=== PATIENT | female | born 1995 | race Caucasian/White ===

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

== ENCOUNTER 2018-01-01 15:22 | Emergency (ER) | payer OTHER ==
[2018-01-01 15:27] VITALS: TEMP 97.9; BMI 26.6
[2018-01-01] MEDS ORDERED: SODIUM CHLORIDE 1,000 ML IV STA (17:17)
[2018-01-01] MEDS ORDERED: METOCLOPRAMIDE HCL INJECTION 10 MG/2 ML VIAL IVPB ONE (17:17)
[2018-01-01] MEDS ORDERED: KETOROLAC TROMETHAMINE 30 MG/1 ML VIAL IVPUSH ONE (17:18)
[2018-01-01] MEDS ORDERED: METOCLOPRAMIDE HCL INJECTION 10 MG/2 ML VIAL ONE (17:35)
[2018-01-01] MEDS ORDERED: KETOROLAC TROMETHAMINE 30 MG/1 ML VIAL ONE (17:35)
--- NOTE | 2018-01-01 17:35 | PDOC ---
History of Present Illness - General Chief Complaint: Migraine Headache Stated Complaint: Migrane Headache Time Seen by Provider: 01/01/18 16:38 History Source: Patient - History of Present Illness Timing/Duration: reports: other Associated Symptoms: reports: seizures. denies: fever/chills, nausea/vomiting Past History - Past Medical History Allergies/Adverse Reactions: Allergies Allergy/AdvReac Type Severity Reaction Status Date / Time shellfish derived Allergy Intermediate Verified 01/01/18 15:27 Penicillins Allergy Unknown Verified 01/01/18 15:27 montelukast sodium AdvReac Severe seizure Verified 01/01/18 15:27 [From [facility]] Home Medications: Ambulatory Orders Topiramate [Topamax -] 200 mg PO BID 11/04/16 Polyethylene Glycol 3350 [Miralax 119 gm Btl -] 17 gm PO TID #30 bottle Topiramate [Topamax -] 200 mg PO BID tablet 12/17/16 COPD: No Seizures: Yes Other medical history: Migranes - Reproductive History Cervical CA: No Dysfunctional Uterine Bleeding: No Ectopic : No Endometrial CA: No Polycystic Ovaries: No Tubal Ligation: No - Immunization History Immunization Up to Date: Yes - Suicide/Smoking/Psychosocial Hx Smoking Status: No Smoking History: Never smoked Have you smoked in the past 12 months: No Number of Cigarettes Smoked Daily: 0 Information on smoking cessation initiated: No Hx Alcohol Use: No Drug/Substance Use Hx: No Substance Use Type: None Review of Systems - Review of Systems Constitutional: No: Chills, Fever ABD/GI: No: Nausea, Vomiting Neurological: Yes: Headache, Dizziness. No: Numbness, Tingling, Weakness *Physical Exam - Vital Signs Last Vital Signs Temp Pulse Resp BP Pulse Ox 97.9 F 72 17 142/79 100 01/01/18 15:24 01/01/18 15:24 01/01/18 15:24 01/01/18 15:24 01/01/18 15:24 - Physical Exam General Appearance: Yes: Appropriately Dressed. 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 Patient states she had a seizure 5 days ago while on her bed and since then has been having occipital headache that has been constant and not adequately relieved with Motrin. Possibly dizziness and visual changes. No photophobia, nausea or vomiting. States she has had similar headaches, but not this constant. No neck pain, URI symptoms, fever or chills. States her seizures have been well controlled until seizure 5 days ago. Does not get usually get headaches post seizure. Has appointment with her neurologist in 2 days per mother See exam DUONG s/p seizure 5 days ago No head injury during seizure, occurred on bed Taking motrin w/ minimal relief Neuro intact No s/o infxn No indication for neuroimaging as d/w Dr Pina -pain control/reassess 01/01/18 18:56 On reassessment, patient reports that headache has resolved. Feels well enough to go home and follow-up with her neurologist in 2 days 01/01/18 18:58 *DC/Admit/Observation/Transfer Diagnosis at time of Disposition: Headache Qualifiers: Headache type: unspecified Headache chronicity pattern: acute headache Intractability: not intractable Qualified Code(s): R51 - Headache - Discharge Dispostion Disposition: HOME Condition at time of disposition: Improved - Referrals - Patient Instructions Printed Discharge Instructions: DI for Headache Additional Instructions: You were given IV Reglan and Toradol in ED, which seemed to improve your symptoms. You can take up to 800mg of Motrin every 6 hours as needed for pain. Be sure to take medication with food. If symptoms worsen, return to the ER. Otherwise follow-up with her neurologist as scheduled in 2 days - Post Discharge Activity
[2018-01-01 19:13] VITALS: BP 118/75; PULSE 76
== END 2018-01-01 19:13 | disposition home or self-care (01) ==
LOC: JER 15:22
PROC: 3E0333Z Introduction of Anti-inflammatory into Peripheral Vein, Percutaneous Approach (ICD-10-PCS; principal; 2018-01-01)
PROC: 3E033GC Introduction of Other Therapeutic Substance into Peripheral Vein, Percutaneous Approach (ICD-10-PCS; 2018-01-01)
DX: G43.909 Migraine, unspecified, not intractable, without status migrainosus (principal); G40.909 Epilepsy, unspecified, not intractable, without status epilepticus
CPT/HCPCS: 84703; 99281-25; J7030

== ENCOUNTER 2018-07-28 12:18 | Emergency (ER) | payer OTHER ==
[2018-07-28 12:28] VITALS: BP 116/61; PULSE 76; TEMP 98.4; BMI 34.0
[2018-07-28 12:57] LABS: HCG,QUALITATIVE URINE Negative
--- NOTE | 2018-07-28 12:57 | PDOC ---
History of Present Illness - General Chief Complaint: Pain Stated Complaint: BACK PAIN Time Seen by Provider: 07/28/18 12:26 History Source: Patient Exam Limitations: No Limitations - History of Present Illness Initial Comments: 07/28/18 12:43 22 yo F with h/o seizure disorder, pcos, here today c/o lower back pain left side and left lower quadrant pain. started 3 - 4 days ago, today was worese. too motrin earlier min relief. denies urinary complaints. no f/c no worse wtih movement. denies injury. no known h/o ovarian cyst. LMP 1 week ago. no other assoc n/v/f/c. 07/28/18 15:15 Past History - Past Medical History Allergies/Adverse Reactions: Allergies Allergy/AdvReac Type Severity Reaction Status Date / Time shellfish derived Allergy Severe Difficulty Verified 07/28/18 12:22 Breathing Penicillins Allergy Unknown Rash Verified 07/28/18 12:21 montelukast sodium AdvReac Severe seizure Verified 01/01/18 15:27 [From [facility]] Home Medications: Ambulatory Orders Topiramate [Topamax -] 200 mg PO BID 11/04/16 Polyethylene Glycol 3350 [Miralax 119 gm Btl -] 17 gm PO TID #30 bottle Topiramate [Topamax -] 200 mg PO BID tablet 12/17/16 COPD: No Seizures: Yes - Reproductive History Cervical CA: No Dysfunctional Uterine Bleeding: No Ectopic : No Endometrial CA: No Polycystic Ovaries: No Tubal Ligation: No - Immunization History Immunization Up to Date: Yes - Suicide/Smoking/Psychosocial Hx Smoking Status: No Smoking History: Never smoked Have you smoked in the past 12 months: No Number of Cigarettes Smoked Daily: 0 Information on smoking cessation initiated: No Hx Alcohol Use: No Drug/Substance Use Hx: No Substance Use Type: None Review of Systems - Review of Systems Constitutional: No: Chills, Diaphoresis HEENTM: No: Eye Pain Respiratory: No: Cough, Orthopnea : No: Burning, Dysuria, Discharge Musculoskeletal: Yes: Back Pain Integumentary: No: Bruising, Change in Color All Other Systems: Reviewed and Negative *Physical Exam - Vital Signs Last Vital Signs Temp Pulse Resp BP Pulse Ox 98.4 F 76 16 116/61 99 07/28/18 12:20 07/28/18 12:20 07/28/18 12:20 07/28/18 12:20 07/28/18 12:20 - Physical Exam Comments: 07/28/18 12:57 awake alert nad. lungs clear bilaterally heart no mrg abd soft mild llq ttp. mild suprapubic ttp. no rebound no guarding. no mildline spinal tendernes.s. no cva tenderness. nuero alert oriented x 3 ED Treatment Course - RADIOLOGY Radiology Studies Ordered: Category Date Time Status KIDNEY / RENAL US [US] Stat Ultrasound 07/28/18 12:36 Ordered TRANSVAGINAL ULTRASOUND US [US] Stat Ultrasound 07/28/18 12:34 Ordered Medical Decision Making - Medical Decision Making 07/28/18 12:58 differential ovarian cyst, torsion. uti pyelo, renal colic less likely based on pain history and description. plan tvus ovaries and renal us, ua ucg. 07/28/18 15:15 pt us tvus and renal unrmarkable. review of pt chart has had two prior ct a/p. due to young age, concerns for radiation exposure. will trial toradol, reassess. cheikh outpt followup. 07/28/18 15:38 on reexamination pt minimal tenderness. given toradol im . requesting dc papers. has outpt mri for fu renal lesion/ cyst. also fu with dr. sanabria. *DC/Admit/Observation/Transfer Diagnosis at time of Disposition: Abdominal pain - Discharge Dispostion Disposition: HOME Condition at time of disposition: Improved - Referrals - Patient Instructions Printed Discharge Instructions: Acute Abdominal Pain Additional Instructions: you should follow up with the MRI of your abdomen as scheduled. return for any fever, worsening symptoms or any concerns. follow up with your primary doctor dr. sanabria - Post Discharge Activity
[2018-07-28 13:10] LABS: PH,URINE 6.5 (4.5-8); URINE APPEARANCE Clear; URINE BILIRUBIN Negative (NEGATIVE); URINE COLOR Yellow; URINE GLUCOSE (UA) Negative (NEGATIVE); URINE KETONE Negative (NEGATIVE); URINE LEUK ESTERASE Negative (NEGATIVE); URINE NITRITE Negative (NEGATIVE); URINE PROTEIN 1+ (NEGATIVE); URINE UROBILINOGEN 0.2 (0.2-1.0)
[2018-07-28 13:29] LABS: URINE WBC 0-2 (0-5)
[2018-07-28 13:30] LABS: EPI CELLS 1+ /HPF; URINE BACTERIA FEW /hpf (NEGATIVE)
[2018-07-28] MEDS ORDERED: KETOROLAC TROMETHAMINE 30 MG/1 ML VIAL IM ONE (15:37)
[2018-07-28] MEDS ORDERED: KETOROLAC TROMETHAMINE 30 MG/1 ML VIAL ONE (16:15)
== END 2018-07-28 16:22 | disposition home or self-care (01) ==
LOC: FER 12:18
PROC: 3E0233Z Introduction of Anti-inflammatory into Muscle, Percutaneous Approach (ICD-10-PCS; principal; 2018-07-28)
DX: R10.9 Unspecified abdominal pain (principal)
CPT/HCPCS: 76775-TC; 76830-TC; 81003; 81015; 84703; 99282-25

== ENCOUNTER 2018-08-05 19:00 | Emergency (ER) | payer OTHER ==
--- NOTE | 2018-08-05 19:24 | PDOC ---
History of Present Illness - General History Source: Patient Exam Limitations: No Limitations - History of Present Illness Initial Comments: 08/05/18 19:35 A portion of this note was documented by scribe services under my direction. I have reviewed the details of the note, within reason, and agree with the documentation. The case summary and management plan written by me. Assessment and plan: This is a 22-year-old female with long history of seizure disorder who is had multiple CAT scans in the past. Patient has a seizure approximately every 1-2 years. Patient's has been med compliant. Patient said that she had a seizure this afternoon as per her boyfriend consisted of her typical seizure which is a grand mal seizure. Patient did fall back at the time she had the seizure and hit the posterior lateral occipital area. Patient said seizure occurred approximately 5 hours and since the seizure she has felt tired and had pain in the area where she hit her head. Patient does have a contusion to the area where she hit her head. Otherwise I did a complete neurological exam including funduscopic exam all of which were normal. Patient was not photophobic, she had no meningeal signs and complained of just feeling "out of it" and a mild headache. Patient did not want a CAT scan as she has had multiple CAT scans in the past and did not want to be subjected to additional radiation if at all possible. Patient has a reliable person with her that will stay with her tonight to make sure that there is no significant change in her neurological condition. Her significant other was given instructions as to what to look out for bring her back for. Patient was discharged home <Dann Kimball I - Last Filed: 08/05/18 19:35> - History of Present Illness Initial Comments: 08/05/18 19:59 HPI: The patient is a 22 year old female, with a significant past medical history of epilepsy (Grand Mal seizures and multiple head CT scans), who presents to the emergency department s/p seizure. As per patient, 5 hours prior to her arrival she had a witnessed Grand Mal seizure and fell backwards onto a concrete sidewalk similar to her baseline seizures (every 1-2 years). She did not seek medical at this time, went home, and took a nap. Upon waking up and eating, she began to have a headache where she hit her head. The patient endorses associated mild lethargy, nausea, disorientation, and right shoulder pain. She denies photophobia and phonophobia. She denies recent fevers, chills, or dizziness. She denies recent vomit, diarrhea or constipation. She denies recent dysuria, frequency, urgency or hematuria. She denies recent chest pain or shortness of breath. PAST MEDICAL HISTORY: no significant history PAST SURGICAL HISTORY: no significant history FAMILY HISTORY: no pertinent history SOCIAL HISTORY: Pt lives with family and is employed. MEDICATIONS: reviewed ALLERGIES: As per nursing notes ROS: +General: Lethargy. No fevers or chills, no weakness, no weight loss HEENT: No change in vision. No sore throat,. No ear pain CardioVascular: No chest pain or shortness of breath Respiratory:No cough, or wheezing. +Gastrointestinal: Nausea. no vomiting, diarrhea or constipation, No rectal bleeding Genitourinary: No dysuria, hematuria, or frequency +Musculoskeletal: Right shoulder pain. No joint or muscle swelling +Neurologic: Headache. Disorientation. Psychiatric: nor depression Skin: No rashes or easy bruising Endocrine: no increased thirst or abnormal weight change Allergic: no skin or latex allergy All other systems reviewed and normal Physical Exam: GENERAL: The patient is awake, alert, and fully oriented, in no acute distress. HEAD: Normal with no signs of trauma. EYES: Pupils equal, round and reactive to light, extraocular movements intact, sclera anicteric, conjunctiva clear. +EXTREMITIES: Right shoulder: Discomfort with ROM. No ecchymosis, swelling, or bony tenderness noted. Neurovascularly intact. NEURO: Mental status: The patient alert and is oriented x3. Cranial nerves: Cranial nerves II through XII are intact Fundoscopic exam normal Motor: The upper extremities are 5 over 5 in all muscle groups. The lower extremities are 5 over 5 in all muscle groups. Sensation: Sensation is intact to light touch throughout. Cerebellar: Strvul-[id number]-[id number] is normal in both upper extremities. Heel-knee- barnhart is normal in both lower extremities. Gait: Normal. Heel and toe walking are normal. Tandem gait is normal. PSYCH: Normal mood, normal affect. SKIN: Warm, Dry, normal turgor, no rashes or lesions noted. 08/05/18 20:07 <Daisy Dubois - Last Filed: 08/05/18 20:09> - General Chief Complaint: Seizure Stated Complaint: SEIZURE, FALL, HEAD INJURY Time Seen by Provider: 08/05/18 19:23 Past History - Past Medical History COPD: No Seizures: Yes - Reproductive History Cervical CA: No Dysfunctional Uterine Bleeding: No Ectopic : No Endometrial CA: No Polycystic Ovaries: No Tubal Ligation: No - Immunization History Immunization Up to Date: Yes - Suicide/Smoking/Psychosocial Hx Smoking Status: No Smoking History: Never smoked Have you smoked in the past 12 months: No Number of Cigarettes Smoked Daily: 0 Information on smoking cessation initiated: No Hx Alcohol Use: No Drug/Substance Use Hx: No Substance Use Type: None <Dann Kimball I - Last Filed: 08/05/18 19:35> <Daisy Dubois - Last Filed: 08/05/18 20:09> - Past Medical History Allergies/Adverse Reactions: Allergies Allergy/AdvReac Type Severity Reaction Status Date / Time shellfish derived Allergy Severe Difficulty Verified 08/05/18 19:03 Breathing Penicillins Allergy Unknown Rash Verified 08/05/18 19:03 Fish Containing Products Allergy Verified 08/05/18 19:03 fish derived Allergy Verified 08/05/18 19:03 Sulfa (Sulfonamide Allergy Verified 08/05/18 19:03 Antibiotics) montelukast sodium AdvReac Severe seizure Verified 08/05/18 19:03 [From [facility]] Home Medications: Ambulatory Orders Topiramate [Topamax] 500 mg PO DAILY 08/05/18 *Physical Exam - Vital Signs Last Vital Signs Temp Pulse Resp BP Pulse Ox 98.1 F 98 H 18 132/76 100 08/05/18 19:00 08/05/18 19:00 08/05/18 19:00 08/05/18 19:00 08/05/18 19:00 <Dann Kimball I - Last Filed: 08/05/18 19:35> - Vital Signs Last Vital Signs Temp Pulse Resp BP Pulse Ox 98.1 F 98 H 18 132/76 100 08/05/18 19:00 08/05/18 19:00 08/05/18 19:00 08/05/18 19:00 08/05/18 19:00 <Daisy Dubois - Last Filed: 08/05/18 20:09> *DC/Admit/Observation/Transfer - Discharge Dispostion Decision to Admit order: No <Dann Kimball I - Last Filed: 08/05/18 19:35> - Attestations Scribe Attestion: 08/05/18 20:00 Documentation prepared by Daisy Dubois, acting as medical device assembler for Dann Kimball MD. <Daisy Dubois - Last Filed: 08/05/18 20:09> Diagnosis at time of Disposition: Seizure Qualifiers: Convulsion type: unspecified Qualified Code(s): R56.9 - Unspecified convulsions Contusion of scalp Qualifiers: Encounter type: initial encounter Qualified Code(s): S00.03XA - Contusion of scalp, initial encounter Strain of right shoulder Qualifiers: Encounter type: initial encounter Qualified Code(s): S46.911A - Strain of unspecified muscle, fascia and tendon at shoulder and upper arm level, right arm , initial encounter - Discharge Dispostion Disposition: HOME Condition at time of disposition: Stable - Referrals Referrals: Curt Polanco [Primary Care Provider] - - Patient Instructions Printed Discharge Instructions: DI for Seizure Disorder -- Adult Additional Instructions: Make sure you continue to take your medications as prescribed including her seizure medication. For the next 24-48 hours take Tylenol for your headache after that you can start taking ibuprofen if needed also for your shoulder discomfort. Someone should check on you once tonight during the night. You should be arousable to their normal level of arousability for that time of the night. If you are vomiting, have a seizure, or you are unable to be aroused, someone should call 911 and have the you brought to the nearest emergency department. You can take Tylenol as needed for pain. Return to the emergency department immediately with ANY new, persistent or worsening symptoms. Continue any medications as previously prescribed by your physician. You should follow up with your primary doctor as soon as possible regarding today's emergency department visit. . Please make sure your doctor reviews the results of your emergency evaluation. Thank you for coming to the Emergency Department today for your care. It was a pleasure to see you today. Please note that your evaluation is INCOMPLETE until you follow-up with your doctor. - Post Discharge Activity
[2018-08-05 19:26] VITALS: BP 132/76; PULSE 98; TEMP 98.1; BMI 33.9
== END 2018-08-05 19:50 | disposition home or self-care (01) ==
LOC: FER 19:00
DX: G40.909 Epilepsy, unspecified, not intractable, without status epilepticus (principal); S00.03XA Contusion of scalp, initial encounter; S46.911A Strain of unspecified muscle, fascia and tendon at shoulder and upper arm level, right arm, initial encounter; X58.XXXA Exposure to other specified factors, initial encounter; Y93.89 Activity, other specified; Y92.89 Other specified places as the place of occurrence of the external cause
CPT/HCPCS: 99283-25

== ENCOUNTER 2020-11-06 06:52 | Day surgery (SDC) | payer OTHER ==
[2020-11-03 13:58] VITALS: BMI 33.9
[2020-11-06] MEDS ORDERED: EPINEPHrine 1:1,000 1 MG/1 ML - 30ML VIAL (INJECTION) ONE (07:18)
[2020-11-06] MEDS ORDERED: MIDAZOLAM HCL 2 MG/2 ML SINGLE DOSE VIAL ONE (09:12)
[2020-11-06] MEDS ORDERED: ROPIVACAINE HCL 0.5% 30ML VIAL ONE (09:13)
[2020-11-06] MEDS ORDERED: DEXAMETHASONE SOD PHOSPHATE 10 MG/1 ML VIAL ONE (09:20)
[2020-11-06] MEDS ORDERED: PROPOFOL 20 ML ONE ×16 (09:39→13:19)
[2020-11-06] MEDS ORDERED: ceFAZolin SODIUM 1 GM VIAL ONE (09:59)
[2020-11-06] MEDS ORDERED: ONDANSETRON 4 MG/2 ML VIAL ONE ×2 (10:06→14:01)
[2020-11-06] MEDS ORDERED: DEXAMETHASONE SOD PHOSPHATE 4 MG/1 ML VIAL ONE (10:06)
[2020-11-06] MEDS ORDERED: HYDROmorphone HCL/PF 1 MG/ML VIAL ONE (12:16)
[2020-11-06] MEDS ORDERED: KETOROLAC TROMETHAMINE 30 MG/1 ML VIAL ONE (14:01)
[2020-11-06] MEDS ORDERED: ONDANSETRON 4 MG/2 ML VIAL IVPUSH PRN (14:16)
[2020-11-06] MEDS ORDERED: oxyCODONE HCL 5 MG TABLET PO PRN (14:16)
[2020-11-06] MEDS ORDERED: LACTATED RINGERS SOLUTION 1,000 ML IV SCH (14:30)
[2020-11-06] MEDS ORDERED: oxyCODONE HCL 5 MG TABLET ONE (16:08)
[2020-11-06 17:09] VITALS: PULSE 81
[2020-11-06 17:10] VITALS: BP 110/64; TEMP 98.4
== END 2020-11-06 17:10 | disposition home or self-care (01) ==
LOC: FASU 06:52
PROVIDERS: ATTEND Orthopaedic Surgery Sports Medicine
PROC: 0RCJ4ZZ Extirpation of Matter from Right Shoulder Joint, Percutaneous Endoscopic Approach (ICD-10-PCS; 2020-11-06)
PROC: 0LQ14ZZ Repair Right Shoulder Tendon, Percutaneous Endoscopic Approach (ICD-10-PCS; 2020-11-06)
PROC: 0RQJ4ZZ Repair Right Shoulder Joint, Percutaneous Endoscopic Approach (ICD-10-PCS; 2020-11-06)
PROC: 0RQJ4ZZ Repair Right Shoulder Joint, Percutaneous Endoscopic Approach (ICD-10-PCS; principal; 2020-11-06 10:09)
PROC: 0MM14ZZ Reattachment of Right Shoulder Bursa and Ligament, Percutaneous Endoscopic Approach (ICD-10-PCS; 2020-11-06 10:09)
DX: M75.101 Unspecified rotator cuff tear or rupture of right shoulder, not specified as traumatic (principal); M25.311 Other instability, right shoulder; M24.011 Loose body in right shoulder
CPT/HCPCS: 84703; 94760; J1100

== ENCOUNTER 2021-07-11 23:02 | Emergency (ER) | payer OTHER ==
[2021-07-11 23:16] VITALS: BMI 34.1
[2021-07-11 23:23] VITALS: BP 118/61; PULSE 79; TEMP 99
[2021-07-11] MEDS ORDERED: KETOROLAC TROMETHAMINE 30 MG/1 ML VIAL IVPUSH ONE (23:32)
[2021-07-11] MEDS ORDERED: KETOROLAC TROMETHAMINE 30 MG/1 ML VIAL ONE (23:35)
[2021-07-12 01:09] LABS: BASO % 0.4 % (0-2.0); EOS % 2.7 % (0-4.5); HEMOGLOBIN 14.4 GM/dL (10.7-15.3); LYMPH % 27.8 % (8-40); MCH 30.1 pg (25.7-33.7); MCHC 34.4 g/dl (32.0-36.0); MEAN CELL VOLUME 87.4 fl (80-96); MEAN PLT VOLUME 8.8 fl (7.5-11.1); MONO % 6.1 % (3.8-10.2); PLATELET COUNT 236 10^3/uL (134-434)
[2021-07-12 01:14] LABS: EPI CELLS >36 /uL (0-25.1); HYALINE CASTS 4 /uL (0-3.1); URINE APPEARANCE CLOUDY; URINE BACTERIA 20 /uL (0-1359); URINE BILIRUBIN NEGATIVE (NEGATIVE); URINE COLOR YELLOW; URINE GLUCOSE (UA) NEGATIVE (NEGATIVE); URINE KETONE NEGATIVE (NEGATIVE); URINE LEUK ESTERASE 2+ (NEGATIVE); URINE NITRITE NEGATIVE (NEGATIVE); URINE PROTEIN NEGATIVE (NEGATIVE); URINE RBC 41 /uL (0-23.9); URINE WBC 114 /uL (0-25.8)
[2021-07-12 01:26] LABS: ALBUMIN 3.8 g/dl (3.4-5.0); CALCIUM 8.2 mg/dL (8.5-10.1)
[2021-07-12 01:30] LABS: CREATININE 1.1 mg/dL (0.55-1.3)
[2021-07-12 01:32] LABS: BILIRUBIN,TOTAL 0.5 mg/dL (0.2-1); TOT PROT 7.7 g/dl (6.4-8.2)
[2021-07-12] MEDS ORDERED: NITROFURANTOIN MACROCRYSTAL 50 MG CAPSULE (FP) ONE (02:54)
[2021-07-12] MEDS ORDERED: NITROFURANTOIN MACROCRYSTAL 50 MG CAPSULE (FP) PO SCH (03:00)
== END 2021-07-12 03:00 | disposition home or self-care (01) ==
LOC: FER 23:02
PROC: 3E0333Z Introduction of Anti-inflammatory into Peripheral Vein, Percutaneous Approach (ICD-10-PCS; principal; 2021-07-11)
DX: N30.90 Cystitis, unspecified without hematuria (principal)
CPT/HCPCS: 36415; 74177-TC; 80053; 81003; 84703; 85025; 87086; 99285-25; Q9967

== ENCOUNTER 2022-09-22 22:51 | Emergency (ER) | payer OTHER ==
[2022-09-22 23:00] VITALS: BP 116/68; PULSE 85; RESP 16; TEMP 98.7; BMI 34.4
[2022-09-22 23:20] LABS: HEMATOCRIT 44.3 % (32.4-45.2); HEMOGLOBIN 14.6 G/dL (10.7-15.3); MCH 29.2 pg (25.7-33.7); MCHC 32.9 g/dl (32.0-36.0); MEAN CELL VOLUME 88.6 fl (80-96); MEAN PLT VOLUME 7.8 fl (7.5-11.1); PLATELET COUNT 252.8 10^3/uL (134-434); WHITE BLOOD COUNT 10.8 10^3/uL (4.0-10.8)
[2022-09-22 23:26] LABS: HCG,QUALITATIVE URINE Negative
[2022-09-22 23:27] LABS: EPITHELIAL CELLS MODERATE /hpf
[2022-09-22 23:28] LABS: PLATELET ESTIMATE ADEQUATE
[2022-09-22 23:34] LABS: ALBUMIN 4.1 g/dl (3.4-5.0); BILIRUBIN,TOTAL 1.8 mg/dl (0.2-1); CALCIUM 8.5 mg/dl (8.5-10); TOT PROT 7.1 g/dl (6.4-8.2)
[2022-09-22] MEDS ORDERED: ONDANSETRON 4 MG/2 ML VIAL IVPUSH ONE (23:38)
[2022-09-22] MEDS ORDERED: ONDANSETRON 4 MG/2 ML VIAL ONE (23:43)
[2022-09-22] MEDS ORDERED: SODIUM CHLORIDE 1,000 ML IV STA (23:46)
== END 2022-09-23 01:21 | disposition home or self-care (01) ==
LOC: FER 22:51
PROC: 3E033GC Introduction of Other Therapeutic Substance into Peripheral Vein, Percutaneous Approach (ICD-10-PCS; principal; 2022-09-22)
PROC: 3E0337Z Introduction of Electrolytic and Water Balance Substance into Peripheral Vein, Percutaneous Approach (ICD-10-PCS; 2022-09-22)
DX: R11.0 Nausea (principal); R55 Syncope and collapse
CPT/HCPCS: 36415; 80053; 81003; 81015; 84703; 85027; 87077; 87086; 99284-25

== ENCOUNTER 2025-01-27 17:58 | Emergency (ER) | payer OTHER ==
[2025-01-27 18:11] VITALS: BP 128/80; PULSE 76; RESP 18; TEMP 98.8; BMI 37.1
[2025-01-27] MEDS ORDERED: ACETAMINOPHEN INJECTION 100 ML ONE (19:27)
[2025-01-27] MEDS: SODIUM CHLORIDE 0.9% 500 ML INFUS.BAG IV ONE (19:37)
[2025-01-27] MEDS: ACETAMINOPHEN 1000 MG/100 ML BAG IVPB ONE (19:38)
[2025-01-27 20:08] LABS: HEMATOCRIT 41.4 % (34.1-44.9); HEMOGLOBIN 14.3 g/dL (11.2-15.7); MCHC 34.5 g/dl (32.2-35.5); MEAN CELL VOLUME 86.6 fl (79.4-94.8); MEAN PLT VOLUME 10.4 fl (9.4-12.3); PLATELET COUNT 291 x10^3/uL (182-369); RDW 12.3 % (12.1-16.5)
[2025-01-27 20:18] LABS: ALBUMIN 4.7 g/dl (3.4-5.0); ALK PHOS 72 U/L (45-117); ANION GAP 9 mmol/L (4-13); BILIRUBIN,TOTAL 1.2 mg/dl (0.2-1); CALCIUM 9.8 mg/dl (8.5-10.1); CHLORIDE 104 mmol/L (98-107); CO2 26 mmol/L (21-32); CREATININE 0.9 mg/dl (0.6-1.3); GLUCOSE,RANDOM 100 mg/dl (74-106); SGOT/AST 24 U/L (15-37); SGPT/ALT 54 U/L (7-52); SODIUM 139 mmol/L (136-145); TOT PROT 7.2 g/dl (6.4-8.2)
== END 2025-01-27 23:08 | disposition home or self-care (01) ==
LOC: FER 17:58
PROC: 3E033NZ Introduction of Analgesics, Hypnotics, Sedatives into Peripheral Vein, Percutaneous Approach (ICD-10-PCS; principal; 2025-01-27)
DX: R10.31 Right lower quadrant pain (principal); R11.2 Nausea with vomiting, unspecified
CPT/HCPCS: 36415; 74177-TC; 80053; 81003; 81015; 81025; 85027; 87086; 99285-25